=== PATIENT | female | born 1940 | race Caucasian/White ===

== ENCOUNTER 2022-07-31 21:03 | Emergency (ER) | payer MEDICARE, OTHER ==
[~2022-07-31] VITALS: Ht 149.9 cm; Wt 44.1 kg
[~2022-07-31 21:03] MED LIST: ALBU8.5H17 INH; ASPI81TA52 PO; CETI10TA19 PO; CYAN-51 PO; FLO0.4C PO; FLO44IN INH; FLUT16SP20; LEVO75TA PO; MAGN400C PO; OMEP-84 PO
[2022-07-31] MEDS ORDERED: ketorolac tromethamine 15mg/ml inj. IM ONE (22:10)
[2022-07-31] MEDS ORDERED: LIDOcaine 5% patch TP STA (22:10)
[2022-07-31] MEDS ORDERED: diazepam inj 5 MG/ML inj. IM ONE (22:10)
[2022-07-31] MEDS ORDERED: acetaminophen 325mg tablet PO ONE (22:10)
[2022-08-01] MEDS ORDERED: BACL-11 PO (00:19)
[2022-08-01] MEDS ORDERED: ACET650T58 PO (00:19)
[2022-08-01] MEDS ORDERED: NAPR-1170 PO (00:21)
== END 2022-08-01 00:49 | disposition home or self-care (01) ==
LOC: ER 21:03
DX: G89.29 Other chronic pain (principal); M54.50 Low back pain, unspecified; I10 Essential (primary) hypertension; J45.909 Unspecified asthma, uncomplicated; F32.A Depression, unspecified; Z90.49 Acquired absence of other specified parts of digestive tract; Z91.030 Bee allergy status; Z88.8 Allergy status to other drugs, medicaments and biological substances; Z79.899 Other long term (current) drug therapy; Z88.2 Allergy status to sulfonamides; Z79.1 Long term (current) use of non-steroidal anti-inflammatories (NSAID); Z79.2 Long term (current) use of antibiotics
CPT/HCPCS: 72131; 96372; 99285; J1885; J3360

== ENCOUNTER 2024-06-23 13:57 | Outpatient (CLI) | payer MEDICARE, OTHER ==
[~2024-06-23 13:57] MED LIST changes: -ALBU8.5H17 INH; +AMLO5TAB16 PO; -ASPI81TA52 PO; -CYAN-51 PO; -FLO44IN INH; -FLUT16SP20; +LEVO50TA8 PO; -LEVO75TA PO; -MAGN400C PO; +PREG50CA65 PO; +VALS160T30 PO
== END 2024-06-23 23:59 | disposition home or self-care (01) ==
LOC: MRI 13:57
PROVIDERS: ATTEND Nurse Practitioner Adult Health
DX: M51.17 Intervertebral disc disorders with radiculopathy, lumbosacral region (principal); M54.50 Low back pain, unspecified; M46.1 Sacroiliitis, not elsewhere classified; M25.78 Osteophyte, vertebrae; M48.07 Spinal stenosis, lumbosacral region; M47.27 Other spondylosis with radiculopathy, lumbosacral region
CPT/HCPCS: 72148